=== PATIENT | female | born 1970 | race Caucasian/White ===

== ENCOUNTER 2016-06-04 11:41 | Inpatient (IN) | payer OTHER ==
[~2016-06-04] VITALS: Ht 157.5 cm; Wt 140.5 kg
[2016-06-04 12:18] LABS: HEMOGLOBIN 13.8 g/dL (11.7-16.4)
[2016-06-04] MEDS ORDERED: THYROID (12:25)
[2016-06-04 12:32] LABS: ASPARTATE AMINO TRANSFERASE 21 U/L (15-37); BLOOD UREA NITROGEN 9 mg/dL (7-18)
[2016-06-04] MEDS ORDERED: IBUPROFEN 200 MG TABLET ONE (13:19)
[2016-06-04] MEDS ORDERED: IBUPROFEN 200 MG TABLET PO ONE (13:30)
[2016-06-04] MEDS ORDERED: SODIUM CHLORIDE FLUSH 10ML SYR IVF ONE (14:00)
[2016-06-04] MEDS ORDERED: OMNIPAQUE 350 MG/ML, 150 ML BOTTLE ONE (15:17)
[2016-06-04] MEDS ORDERED: ENOXAPARIN 100 MG/ML SQ ONE (16:00)
[2016-06-04] MEDS ORDERED: SODIUM CHLORIDE FLUSH 10ML SYR IVF PRN (16:30)
[2016-06-04] MEDS ORDERED: ENOXAPARIN 40 MG/0.4 ML SQ ONE ×2 (16:30)
[2016-06-04] MEDS ORDERED: ENOXAPARIN 40 MG/0.4 ML ONE (16:33)
[2016-06-04] MEDS ORDERED: Enoxaparin 1 mg/kg protocol SQ SCH (18:30)
[2016-06-04] MEDS ORDERED: ENALAPRILAT 1.25 MG/ML, 2ML IVPush PRN (18:30)
[2016-06-04] MEDS ORDERED: HYDROcodone/APAP 5/325 TABLET PO PRN (18:30)
[2016-06-04] MEDS ORDERED: LABETALOL 5MG/ML, 20ML IV PRN (18:30)
[2016-06-04] MEDS ORDERED: MORPHINE SULFATE 4 MG/ML, 1ML IVPush PRN (18:30)
[2016-06-04] MEDS ORDERED: POLYETHYLENE GLYCOL 17 GM PACKET PO PRN (18:30)
[2016-06-04] MEDS ORDERED: BISACODYL 10 MG SUPP PR PRN (18:30)
[2016-06-04] MEDS ORDERED: ONDANSETRON 2MG/ML, 2ML IVP PRN (18:30)
[2016-06-04] MEDS ORDERED: DEXTROSE 50%, 50ML SYRINGE IVPush PRN (19:00)
[2016-06-04] MEDS ORDERED: GLUCAGON 1 MG IM PRN (19:00)
[2016-06-04] MEDS ORDERED: DEXTROSE 4 GM TAB.CHEW PO PRN (19:00)
[2016-06-04 19:08] LABS: IS PT STATUS REG ER OR PRE ER? YES
[2016-06-04] MEDS ORDERED: LEVO150T5 PO (19:15)
[2016-06-04] MEDS ORDERED: LIOT5TAB3 PO (19:15)
[2016-06-04] MEDS: SODIUM CHLORIDE FLUSH 10ML SYR IVF SCH (22:07)
[2016-06-04] MEDS: INSULIN ASPART 100 UNITS/ML, PEN SQ-INSULIN SCH (22:07)
[2016-06-04] MEDS: ACETAMINOPHEN 325 MG TABLET PO PRN (22:08)
[2016-06-04 22:12] VITALS: BP 118/69
[2016-06-05] VITALS: BP 142/91
[2016-06-05 01:17] LABS: IS PT STATUS REG ER OR PRE ER? NO
[2016-06-05 03:45] VITALS: BP 170/94
[2016-06-05] MEDS: ACETAMINOPHEN 325 MG TABLET PO PRN ×3 (04:25→13:48)
[2016-06-05 05:05] VITALS: BP 120/70
[2016-06-05] MEDS: ENOXAPARIN 150 MG/ML SQ SCH ×2 (05:40→17:51)
[2016-06-05 06:01] LABS: HEMOGLOBIN 12.4 g/dL (11.7-16.4)
[2016-06-05 06:09] LABS: BLOOD UREA NITROGEN 8 mg/dL (7-18)
[2016-06-05 06:20] LABS: ASPARTATE AMINO TRANSFERASE 16 U/L (15-37)
[2016-06-05 08:31] VITALS: BP 123/70
[2016-06-05] MEDS: INSULIN ASPART 100 UNITS/ML, PEN SQ-INSULIN SCH ×4 (08:32→22:19)
[2016-06-05] MEDS ORDERED: LIOTHYRONINE 5 MCG TABLET PO SCH (09:00)
[2016-06-05] MEDS: LEVOTHYROXINE 150 MCG TABLET HOMEMEDPO SCH (09:00)
[2016-06-05] MEDS ORDERED: LEVOTHYROXINE 150 MCG TABLET PO SCH (09:00)
[2016-06-05] MEDS: LIOTHYRONINE 5 MCG TABLET HOMEMEDPO SCH (09:00)
[2016-06-05] MEDS: SODIUM CHLORIDE FLUSH 10ML SYR IVF SCH ×2 (09:00→22:19)
[2016-06-05] MEDS: WARFARIN HIGH DOSE PROTOCOL XX SCH (12:00)
[2016-06-05 12:39] VITALS: BP 145/81
[2016-06-05] MEDS ORDERED: WARFARIN 10 MG TABLET PO-COUM ONE (18:00)
[2016-06-05 20:55] VITALS: BP 131/88
[2016-06-06 01:55] VITALS: BP 138/86
[2016-06-06] MEDS: ENOXAPARIN 150 MG/ML SQ SCH (05:59)
[2016-06-06 07:33] VITALS: BP_SYST 144; BP_SYST 152; BP_DIAS 75; BP_DIAS 79
[2016-06-06] MEDS: LIOTHYRONINE 5 MCG TABLET HOMEMEDPO SCH (07:53)
[2016-06-06] MEDS: LEVOTHYROXINE 150 MCG TABLET HOMEMEDPO SCH (07:53)
[2016-06-06] MEDS: SODIUM CHLORIDE FLUSH 10ML SYR IVF SCH (08:02)
[2016-06-06] MEDS: INSULIN ASPART 100 UNITS/ML, PEN SQ-INSULIN SCH ×2 (08:03→11:00)
[2016-06-06 10:42] LABS: BLOOD UREA NITROGEN 8 mg/dL (7-18)
[2016-06-06] MEDS: WARFARIN HIGH DOSE PROTOCOL XX SCH (12:00)
[2016-06-06] MEDS ORDERED: ACET325T14 PO (13:00)
[2016-06-06] MEDS ORDERED: WARF5TAB7 PO (13:00)
[2016-06-06] MEDS ORDERED: ENOX150D3 SQ (13:01)
[2016-06-06 15:04] VITALS: BP 115/70
[2016-06-06] MEDS ORDERED: WARFARIN 7.5 MG TABLET PO-COUM ONE (18:00)
== END 2016-06-06 17:19 | disposition home or self-care (01) | DRG 176 ==
LOC: ED 15:43 → EDIP 16:23 → 4EST 21:14 → DCLOUNGE 06-06 16:47
PROVIDERS: ADMIT Internal Medicine; ATTEND Internal Medicine
PROC: 0T9B70Z Drainage of Bladder with Drainage Device, Via Natural or Artificial Opening (ICD-10-PCS; principal; 2016-06-05)
DX: I26.99 Other pulmonary embolism without acute cor pulmonale (principal); R65.10 Systemic inflammatory response syndrome (SIRS) of non-infectious origin without acute organ dysfunction; Z68.43 Body mass index [BMI] 50.0-59.9, adult; E11.65 Type 2 diabetes mellitus with hyperglycemia; E03.9 Hypothyroidism, unspecified; E87.6 Hypokalemia; I10 Essential (primary) hypertension; E66.01 Morbid (severe) obesity due to excess calories; Z79.899 Other long term (current) drug therapy
CPT/HCPCS: 36415; 71020; 71275; 80048; 80053; 81001; 82962; 83036; 83735; 84443; 84484; 85025; 85379; 85610; 93005; 93306; 99285; J1650; J1815; Q9967

== ENCOUNTER 2016-08-18 16:29 | Emergency (ER) | payer OTHER ==
[~2016-08-18] VITALS: Ht 157.5 cm; Wt 138.7 kg
[~2016-08-18 16:29] MED LIST: ACET325T14 PO; ENOX150S4 SQ; LEVO150T5 PO; LIOT5TAB3 PO; THYROID; WARF5TAB7 PO
[2016-08-18] MEDS ORDERED: ACETAMINOPHEN 500 MG TABLET PO ONE (17:30)
[2016-08-18] MEDS ORDERED: SODIUM CHLORIDE 0.9% 1,000ML IVBOLUS ONE (17:30)
[2016-08-18] MEDS ORDERED: KETOROLAC 30 MG/1 ML IVPush ONE (17:30)
[2016-08-18] MEDS ORDERED: SODIUM CHLORIDE FLUSH 10ML SYR IVF ONE (17:30)
[2016-08-18] MEDS ORDERED: ACETAMINOPHEN 500 MG TABLET ONE (17:38)
[2016-08-18] MEDS ORDERED: KETOROLAC 30 MG/1 ML ONE (17:38)
[2016-08-18 17:45] VITALS: BP 142/83
[2016-08-18 18:01] LABS: IS PT STATUS REG ER OR PRE ER? YES
[2016-08-18 18:14] LABS: ASPARTATE AMINO TRANSFERASE 15 U/L (15-37); BLOOD UREA NITROGEN 6 mg/dL (7-18)
== END 2016-08-18 18:54 | disposition home or self-care (01) ==
LOC: ED 18:05
DX: A41.9 Sepsis, unspecified organism (principal); J18.1 Lobar pneumonia, unspecified organism; E11.9 Type 2 diabetes mellitus without complications; E07.9 Disorder of thyroid, unspecified; Z86.711 Personal history of pulmonary embolism
CPT/HCPCS: 36415; 71020; 80053; 83605; 83880; 84145; 84484; 85025; 87040; 93005; 96361; 96374; 99285; J1885; J7030